=== PATIENT | male | born 1980 | race Caucasian/White ===

== ENCOUNTER 2016-11-25 06:44 | Emergency (ER) | payer MEDICAID ==
[~2016-11-25] VITALS: Ht 180.3 cm; Wt 71.3 kg
[~2016-11-25 06:44] MED LIST: DIPH25CA61 PO
[2016-11-25 06:45] VITALS: BP 146/104
== END 2016-11-25 07:29 | disposition home or self-care (01) ==
LOC: ED 07:23
DX: J20.8 Acute bronchitis due to other specified organisms (principal); B96.89 Other specified bacterial agents as the cause of diseases classified elsewhere; I10 Essential (primary) hypertension; H65.02 Acute serous otitis media, left ear; F17.210 Nicotine dependence, cigarettes, uncomplicated; F12.10 Cannabis abuse, uncomplicated
CPT/HCPCS: 99283

== ENCOUNTER 2018-03-22 11:33 | Emergency (ER) | payer MEDICAID ==
[~2018-03-22] VITALS: Ht 180.3 cm; Wt 72.0 kg
[2018-03-22 11:35] VITALS: BP 124/83
[2018-03-22] MEDS ORDERED: CARBAMIDE PEROXIDE EAR DROPS 6.5%, 15ML ONE (11:57)
[2018-03-22] MEDS ORDERED: CARBAMIDE PEROXIDE EAR DROPS 6.5%, 15ML RIGHT EAR ONE (12:00)
== END 2018-03-22 13:10 | disposition home or self-care (01) ==
LOC: ED 12:53
DX: H61.21 Impacted cerumen, right ear (principal); H60.501 Unspecified acute noninfective otitis externa, right ear; I10 Essential (primary) hypertension; F17.200 Nicotine dependence, unspecified, uncomplicated
CPT/HCPCS: 69209; 99283

== ENCOUNTER 2018-05-09 12:44 | Emergency (ER) | payer MEDICAID ==
[~2018-05-09] VITALS: Ht 180.3 cm; Wt 73.3 kg
[2018-05-09 13:04] VITALS: BP 124/88
--- NOTE | 2018-05-09 13:28 | NUR ---
Patient given discharge instructions and Rx, they have confirmed that they understand the instructions. Patient ambulatory with steady gait.
== END 2018-05-09 13:28 | disposition home or self-care (01) ==
LOC: ED 13:27
DX: H66.001 Acute suppurative otitis media without spontaneous rupture of ear drum, right ear (principal); I10 Essential (primary) hypertension; F17.200 Nicotine dependence, unspecified, uncomplicated
CPT/HCPCS: 99283

== ENCOUNTER 2018-05-28 02:22 | Emergency (ER) | payer MEDICAID ==
[~2018-05-28] VITALS: Ht 180.3 cm; Wt 76.4 kg
[2018-05-28 02:24] VITALS: BP 121/82
== END 2018-05-28 03:08 | disposition home or self-care (01) ==
LOC: ED 03:02
DX: H60.591 Other noninfective acute otitis externa, right ear (principal); I10 Essential (primary) hypertension; M54.16 Radiculopathy, lumbar region
CPT/HCPCS: 99283

== ENCOUNTER 2018-05-30 08:41 | Emergency (ER) | payer MEDICAID ==
[~2018-05-30] VITALS: Ht 180.3 cm; Wt 73.9 kg
[2018-05-30 08:46] VITALS: BP 146/91
[2018-05-30] MEDS ORDERED: RANI150T4 PO (09:06)
[2018-05-30] MEDS ORDERED: CALC200T3 PO (09:07)
[2018-05-30 10:12] LABS: RAPID INFLUENZA A Negative (Negative); RAPID INFLUENZA B Negative (Negative)
[2018-05-30] MEDS ORDERED: IBUPROFEN 200 MG TABLET ONE (10:27)
[2018-05-30] MEDS ORDERED: IBUPROFEN 200 MG TABLET PO ONE (10:30)
--- NOTE | 2018-05-30 11:01 | NUR ---
Patient/Caregiver given discharge instructions and they have confirmed that they understand the instructions. Patient ambulatory with steady gait.
== END 2018-05-30 11:02 | disposition home or self-care (01) ==
LOC: ED 09:20
DX: H66.003 Acute suppurative otitis media without spontaneous rupture of ear drum, bilateral (principal); R05 Cough; R06.00 Dyspnea, unspecified; M79.18 Myalgia, other site; F12.10 Cannabis abuse, uncomplicated; R07.9 Chest pain, unspecified
CPT/HCPCS: 71046; 87400; 93005; 99284

== ENCOUNTER 2018-09-14 05:53 | Emergency (ER) | payer MEDICAID ==
[~2018-09-14] VITALS: Ht 180.3 cm; Wt 74.0 kg
[~2018-09-14 05:53] MED LIST changes: +CALC200T3 PO; +RANI150T4 PO
[2018-09-14 06:14] VITALS: BP 126/86
--- NOTE | 2018-09-14 06:24 | NUR ---
TO ROOM AT THIS TIME
--- NOTE | 2018-09-14 06:31 | NUR ---
PT REPORTS FEELING PAIN IN RIGHT EAR YESTERDAY. TODAY WOKE UP WITH BLOOD ON PILLOW. PAIN /. DENIES PMH. STATES HE HAS FREQUENT EAR INFECTIONS AND WAS TOLD BY ENT THAT HIS EAR CANAL IS SHAPED LIKE A PERLA. NO BLOOD NOTED IN EAR CANAL CURRENTLY. WAITING TO BE SEEN.
--- NOTE | 2018-09-14 07:43 | NUR ---
PROVIDER TO BEDSIDE- TO TX EAR INGECTION OUTPATIENT. PATIENT AGREEABLE NO OBVIOUS BLEEDING/REPORTS PAIN AT 310
== END 2018-09-14 07:46 ==
LOC: ED 07:40
DX: H66.91 Otitis media, unspecified, right ear (principal); H72.91 Unspecified perforation of tympanic membrane, right ear; H60.311 Diffuse otitis externa, right ear; I10 Essential (primary) hypertension; F17.200 Nicotine dependence, unspecified, uncomplicated
CPT/HCPCS: 99283

== ENCOUNTER 2018-10-15 15:45 | Emergency (ER) | payer MEDICAID ==
[~2018-10-15] VITALS: Ht 180.3 cm; Wt 74.9 kg
[2018-10-15 16:00] VITALS: BP 161/94
== END 2018-10-15 17:25 | disposition home or self-care (01) ==
LOC: ED 16:55
DX: S93.401A Sprain of unspecified ligament of right ankle, initial encounter (principal); S20.229A Contusion of unspecified back wall of thorax, initial encounter; F17.200 Nicotine dependence, unspecified, uncomplicated; V29.09XA Motorcycle driver injured in collision with other motor vehicles in nontraffic accident, initial encounter; Y93.89 Activity, other specified; Y92.828 Other wilderness area as the place of occurrence of the external cause; Y99.8 Other external cause status
CPT/HCPCS: 99283

== ENCOUNTER 2019-08-24 09:55 | Emergency (ER) | payer SELFPAY ==
[~2019-08-24] VITALS: Ht 180.3 cm; Wt 73.6 kg
[2019-08-24 10:05] VITALS: BP 145/100
--- NOTE | 2019-08-24 10:24 | NUR ---
PT PRESENTS TO ED WITH C/O RIGHT LOWER BACK PAIN RADIATING DOWN RIGHT LEG X 3 WEEKS, DENIES INJURY/TRAUMA BUT DOES PERFORM MANUAL LABOR FOR A LIVING. PT SEEN AND EXAMINED BY [facility], AWAITING ORDERS FOR IMAGING/MEDS AT THIS TIME. BP AND SPO2 MONITORS IN PLACE, CALL LIGHT IN REACH.
[2019-08-24] MEDS: KETOROLAC 30 MG/1 ML IM ONE ×2 (10:30→10:48)
[2019-08-24] MEDS ORDERED: METHOCARBAMOL 750 MG TABLET PO ONE (10:30)
[2019-08-24] MEDS ORDERED: KETOROLAC 30 MG/1 ML ONE (10:46)
[2019-08-24] MEDS ORDERED: METHOCARBAMOL 750 MG TABLET ONE (10:46)
--- NOTE | 2019-08-24 10:56 | NUR ---
PT REFUSING TORADOL DESPITE EDUCATION FROM [facility]. AWAITING DC ORDERS AT THIS TIME.
--- NOTE | 2019-08-24 11:13 | NUR ---
PT DC HOME IN A STABLE CONDITION. DC INSTRUCTIONS WERE DISCUSSED WITH PT. PT VERBALIZED UNDERSTANDING. NO FURTHER QUESTIONS OR CONCERNS WERE EXPRESSED AT THAT TIME. PT AMBULATED WITH RN TO DC DESK WITH A STEADY GAIT.
== END 2019-08-24 11:15 | disposition home or self-care (01) ==
LOC: ED 10:36
DX: S39.012A Strain of muscle, fascia and tendon of lower back, initial encounter (principal); I10 Essential (primary) hypertension; F17.290 Nicotine dependence, other tobacco product, uncomplicated; X58.XXXA Exposure to other specified factors, initial encounter; Y93.89 Activity, other specified; Y92.89 Other specified places as the place of occurrence of the external cause; Y99.0 Civilian activity done for income or pay
CPT/HCPCS: 99283; J1885

== ENCOUNTER 2019-09-28 08:14 | Emergency (ER) | payer SELFPAY ==
[~2019-09-28] VITALS: Ht 180.3 cm; Wt 76.6 kg
[2019-09-28 08:17] VITALS: BP 148/89
[2019-09-28] MEDS ORDERED: DEXAMETHASONE 4 MG TABLET ONE (08:53)
[2019-09-28] MEDS ORDERED: DEXAMETHASONE 4 MG TABLET PO ONE (09:00)
== END 2019-09-28 09:20 | disposition home or self-care (01) ==
LOC: ED 09:06
DX: H65.01 Acute serous otitis media, right ear (principal); M54.41 Lumbago with sciatica, right side; F17.210 Nicotine dependence, cigarettes, uncomplicated
CPT/HCPCS: 99283; 99406

== ENCOUNTER 2019-10-02 18:11 | Emergency (ER) | payer SELFPAY ==
[~2019-10-02] VITALS: Ht 180.3 cm; Wt 77.0 kg
[2019-10-02 18:21] VITALS: BP 118/88
--- NOTE | 2019-10-02 18:40 | NUR ---
RIGHT BACK PAIN WITH SCIATICA WORSENING WHERE HE IS HAVING DIFFIUCLTY WALKING LAST FEW DAYS
--- NOTE | 2019-10-02 18:51 | NUR ---
REPORT TO KRISS WILLAMS
== END 2019-10-02 19:06 | disposition home or self-care (01) ==
LOC: ED 18:54
DX: M51.17 Intervertebral disc disorders with radiculopathy, lumbosacral region (principal); R11.0 Nausea; I10 Essential (primary) hypertension; F17.200 Nicotine dependence, unspecified, uncomplicated
CPT/HCPCS: 99283

== ENCOUNTER 2020-01-08 17:09 | Emergency (ER) | payer SELFPAY ==
[~2020-01-08] VITALS: Ht 180.3 cm; Wt 75.7 kg
[2020-01-08 17:26] VITALS: BP 125/96
--- NOTE | 2020-01-08 18:55 | NUR ---
pt to room from lobby
[2020-01-08] MEDS ORDERED: CEFTRIAXONE 250 MG ONE (19:26)
[2020-01-08] MEDS ORDERED: AZITHROMYCIN 250 MG TABLET ONE (19:26)
[2020-01-08] MEDS ORDERED: LIDOCAINE-MPF 1%, 2ML ONE (19:26)
[2020-01-08] MEDS ORDERED: CEFTRIAXONE 250 MG IM ONE (19:30)
[2020-01-08] MEDS ORDERED: AZITHROMYCIN 500 MG TABLET PO ONE (19:30)
== END 2020-01-08 20:09 | disposition home or self-care (01) ==
LOC: ED 19:08
DX: A56.01 Chlamydial cystitis and urethritis (principal); A54.01 Gonococcal cystitis and urethritis, unspecified; I10 Essential (primary) hypertension; F17.200 Nicotine dependence, unspecified, uncomplicated
CPT/HCPCS: 87491; 87591; 96372; 99283; J0696

== ENCOUNTER 2020-02-08 09:58 | Emergency (ER) | payer OTHER ==
[~2020-02-08] VITALS: Ht 180.3 cm; Wt 75.3 kg
[2020-02-08 11:15] LABS: MICROSCOPIC NOT IND
[2020-02-08] MEDS ORDERED: ESTR0.9T PO (11:33)
[2020-02-08] MEDS ORDERED: BUPR300T49 PO (11:33)
[2020-02-08] MEDS ORDERED: MONT10TA6 PO (11:33)
[2020-02-08] MEDS ORDERED: TOPI25TA32 PO (11:33)
[2020-02-08] MEDS ORDERED: HYDR-3246 PO (11:33)
[2020-02-08 11:45] VITALS: BP 138/102
--- NOTE | 2020-02-08 11:49 | NUR ---
PT RESTING ON [employer] IN [facility], VSS. CALL LIGHT WITHIN REACH.
== END 2020-02-08 12:16 | disposition home or self-care (01) ==
LOC: ED 10:34
DX: N43.3 Hydrocele, unspecified (principal); N50.812 Left testicular pain; I10 Essential (primary) hypertension; F17.200 Nicotine dependence, unspecified, uncomplicated
CPT/HCPCS: 76870; 81003; 99284

== ENCOUNTER 2020-04-03 10:37 | Emergency (ER) | payer SELFPAY ==
[~2020-04-03] VITALS: Ht 180.3 cm; Wt 74.3 kg
[~2020-04-03 10:37] MED LIST changes: +BUPR300T49 PO; +ESTR0.9T PO; +HYDR-3246 PO; +MONT10TA6 PO; +TOPI25TA32 PO
[2020-04-03 10:53] VITALS: BP 143/93
--- NOTE | 2020-04-03 11:49 | NUR ---
ua sent to lab reviewed poc (sexual abstinence, expect call with culture results in 2-3 days)
== END 2020-04-03 11:51 | disposition home or self-care (01) ==
LOC: ED 11:48
DX: S90.111A Contusion of right great toe without damage to nail, initial encounter (principal); B35.1 Tinea unguium; F17.200 Nicotine dependence, unspecified, uncomplicated; X58.XXXA Exposure to other specified factors, initial encounter; Y93.89 Activity, other specified; Y92.69 Other specified industrial and construction area as the place of occurrence of the external cause; Y99.0 Civilian activity done for income or pay
CPT/HCPCS: 11740; 87491; 87591; 99284

== ENCOUNTER 2020-04-11 08:35 | Emergency (ER) | payer SELFPAY ==
[~2020-04-11] VITALS: Ht 180.3 cm; Wt 73.3 kg
[2020-04-11 08:38] VITALS: BP 136/93
== END 2020-04-11 09:13 | disposition home or self-care (01) ==
LOC: ED 09:00
DX: H66.002 Acute suppurative otitis media without spontaneous rupture of ear drum, left ear (principal); R09.81 Nasal congestion; J02.9 Acute pharyngitis, unspecified; F17.210 Nicotine dependence, cigarettes, uncomplicated
CPT/HCPCS: 99283; 99406

== ENCOUNTER 2020-08-06 08:50 | Emergency (ER) | payer OTHER ==
[~2020-08-06] VITALS: Ht 180.3 cm; Wt 75.5 kg
[~2020-08-06 08:50] MED LIST changes: -HYDR-3246 PO; +HYDR-3248 PO
[2020-08-06 08:52] VITALS: BP 150/93
--- NOTE | 2020-08-06 09:29 | NUR ---
Patient given discharge instructions and they have confirmed that they understand the instructions. Patient ambulatory with steady gait.
== END 2020-08-06 09:30 | disposition home or self-care (01) ==
LOC: ED 09:03
DX: H66.002 Acute suppurative otitis media without spontaneous rupture of ear drum, left ear (principal); I10 Essential (primary) hypertension; F17.210 Nicotine dependence, cigarettes, uncomplicated
CPT/HCPCS: 99406

== ENCOUNTER 2020-09-05 07:26 | Emergency (ER) | payer OTHER ==
[~2020-09-05] VITALS: Ht 180.3 cm; Wt 73.5 kg
[2020-09-05 07:36] VITALS: BP 135/101
--- NOTE | 2020-09-05 07:58 | NUR ---
PT STATES HE HAS DECREASED HEARING IN HIS LEFT EAR THAT HAS NOT GONE AWAY DESPITE FINISHING REGIMEN OF ANTIBIOTICS. SORE THROAT, DIARRHEA WITH NAUSEA STARTED YESTERDAY ALONG WITH A RIGHT SCIATICA TYPE PAIN LOW BACK RADIATING DOWN LEG.
== END 2020-09-05 09:08 | disposition home or self-care (01) ==
LOC: ED 09:07
DX: H66.005 Acute suppurative otitis media without spontaneous rupture of ear drum, recurrent, left ear (principal); M54.31 Sciatica, right side; H71.92 Unspecified cholesteatoma, left ear; F17.200 Nicotine dependence, unspecified, uncomplicated
CPT/HCPCS: 99283